=== PATIENT | male | born 1995 | race African-American/Black ===

== ENCOUNTER 2017-12-24 17:51 | Emergency (ER) | payer SELFPAY ==
[2017-12-24 18:19] LABS: PLATELET COUNT 279 10^3/uL (150-400)
[2017-12-24] MEDS ORDERED: SULFAMETHOX/TMP 800/160 MG 1 TAB PO ONE (18:46)
--- NOTE | 2017-12-24 19:06 | EDPHY ---
H & P Smoking Status: Current every day smoker Time Seen by Provider: 12/24/17 19:03 HPI/ROS: CHIEF COMPLAINT: Suicidal ideation and worsening depression HISTORY OF PRESENT ILLNESS: Patient is a 22-year-old male with a self-reported history of schizophrenia and depression here with complaint of worsening depression and suicidal ideation. He reports he has been taking his medication as directed present insert on his doses. Denies any current drug use but does report a history of use of multiple drugs but cannot specify which. He denies fever and chills. He denies drug allergies. REVIEW OF SYSTEMS: Constitutional: No fever, no chills. Eyes: No discharge. ENT: No sore throat. Cardiovascular: No chest pain, no palpitations. Respiratory: No cough, no shortness of breath. Gastrointestinal: No abdominal pain, no vomiting. Genitourinary: No hematuria. Musculoskeletal: No back pain. Skin: No rashes. Neurological: No headache. (Pradeep Ly) Physical Exam: General Appearance: Alert and no distress. Eyes: Pupils equal and round no injection. Respiratory: Chest is nontender, lungs are clear to auscultation. Cardiac: regular rate and rhythm. Gastrointestinal: Abdomen is soft and nontender, no masses, bowel sounds normal. Musculoskeletal: Neck is supple and nontender. Extremities have full range of motion and are nontender. Skin: Multiple 0.25 x 0.25 cm pustular lesions to the left forearm with mild surrounding erythema without induration or fluctuance. (Pradeep Ly) Constitutional: Initial Vital Signs Temperature (C) 36.7 C 12/24/17 17:59 Heart Rate 86 12/24/17 17:59 Respiratory Rate 16 12/24/17 17:59 Blood Pressure 131/100 H 12/24/17 17:59 O2 Sat (%) 97 12/24/17 17:59 O2 Delivery Mode Room Air Allergies/Adverse Reactions: No Known Allergies Allergy (Unverified 12/24/17 17:56) Home Medications: Medication Instructions Recorded Adderall 10 MG (*) 12/24/17 Seroquel 12/24/17 Sulfamethox/Tmp 800/160 mg 1 tab PO BID #14 tab 12/25/17 [Bactrim Ds] Medical Decision Making ED Course/Re-evaluation: Patient here with suicidal ideation and isn't is positive for methamphetamine abuse. He will be re-evaluated in the morning by mental health. Patient was signed out to Dr. Tracy at 1:00 a.m. (Pradeep Ly) 1207: Patient evaluated by mental health. Patient still endorses SI. Meth positive. They would like to re-evaluate him in the morning. 0700AM: No acute events overnight. Sleeping. Signed over to Dr. Hoyos 7Am Shift change. (Marvin Tracy) 7:00 a.m.-I assumed care of this patient at shift change. 10:30 a.m.-discussed with mental health on multiple occasions this morning. Mental health has done an extensive evaluation and feels this patient is safe and stable for discharge home. I agree with this assessment. (Dina Washington) - Data Points Laboratory Results: Laboratory Results 12/24/17 17:55 12/24/17 17:55 Medications Given: Discontinued Medications Quetiapine Fumarate (Seroquel) 400 mg PO EDNOW ONE Stop: 12/24/17 19:51 Last Admin: 12/24/17 20:17 Dose: 400 mg Trimethoprim/Sulfamethoxazole (Bactrim Ds) 1 ea PO EDNOW ONE PRN Reason: Protocol Stop: 12/24/17 18:47 Last Admin: 12/24/17 19:42 Dose: 1 ea Departure - Departure Disposition: Home, Routine, Self-Care Clinical Impression: Suicidal ideation, Cellulitis, Polysubstance abuse Condition: Good Instructions: Polysubstance Abuse (ED), Suicide Prevention (ED) Additional Instructions: Follow-up with your mental health provider as suggested. Referrals: NONE *PRIMARY CARE P,. [Primary Care Provider] - As per Instructions Prescriptions: Sulfamethox/Tmp 800/160 mg [Bactrim Ds] 1 tab PO BID #14 tab
[2017-12-24] MEDS ORDERED: QUEtiapine FUMARATE 200 MG TAB PO ONE (19:50)
[2017-12-25 08:41] VITALS: BP 97/57
== END 2017-12-25 11:00 | disposition home or self-care (01) ==
LOC: EEVIPCON 17:51
DX: R45.851 Suicidal ideations (principal); L03.114 Cellulitis of left upper limb; F19.10 Other psychoactive substance abuse, uncomplicated; F17.200 Nicotine dependence, unspecified, uncomplicated
CPT/HCPCS: 80305; G0480